=== PATIENT | female | born 1965 | race American Indian/Alaskan Native ===

== ENCOUNTER 2018-01-05 09:41 | Emergency (ER) | payer MEDICAID, OTHER ==
[~2018-01-05] VITALS: Ht 165.1 cm; Wt 90.5 kg
[~2018-01-05 09:41] MED LIST: BENZ-38 PO; CITA-311 PO; CLON-527 PO; CLON2TAB PO; CYCL-394 PO; DIAZ2TAB PO; FLUO20CA39 PO; HYDR-3968 PO; HYDR-569 PO; METH-233 PO; NAPR375T PO; PRED20TA PO; [UNRECOGNIZED DRUG - CODE] PO
[2018-01-05] MEDS ORDERED: orphenadrine citrate 60mg/2ml inj. IM ONE (10:30)
[2018-01-05] MEDS ORDERED: ketorolac trometh inj. 60 MG/2 ML VIAL IM ONE (10:30)
[2018-01-05] MEDS ORDERED: ketorolac trometh. 30mg/ml inj. IM ONE (10:30)
[2018-01-05] MEDS ORDERED: CYCL-1 PO (10:31)
[2018-01-05 10:51] VITALS: BP 135/89
== END 2018-01-05 10:52 | disposition home or self-care (01) ==
LOC: ER 09:42
DX: M54.30 Sciatica, unspecified side (principal); M21.371 Foot drop, right foot; G89.29 Other chronic pain; J45.909 Unspecified asthma, uncomplicated; F41.9 Anxiety disorder, unspecified; F20.9 Schizophrenia, unspecified; Z90.710 Acquired absence of both cervix and uterus; Z59.0 Homelessness; Z85.3 Personal history of malignant neoplasm of breast; Z79.899 Other long term (current) drug therapy
CPT/HCPCS: 96372; 99284; J1885; J2360

== ENCOUNTER 2018-02-04 10:25 | Emergency (ER) | payer MEDICAID ==
[~2018-02-04] VITALS: Ht 160 cm; Wt 86.0 kg
[~2018-02-04 10:25] MED LIST changes: +CYCL-1 PO
[2018-02-04 12:12] LABS: URINE AMPHETAMINE SCREEN NEGATIVE (Neg); URINE BARBITUATE SCREEN NEGATIVE (Neg); URINE BENZODIAZEPINES SCREEN NEGATIVE (Neg); URINE CANNABINOID SCREEN NEGATIVE (Neg); URINE COCAINE SCREEN NEGATIVE (Neg); URINE METHADONE SCREEN NEGATIVE (Neg); URINE OPIATE SCREEN NEGATIVE (Neg); URINE PHENCYCLIDINE SCREEN NEGATIVE (Neg)
[2018-02-04] MEDS ORDERED: LORazepam 0.5 MG tablet PO PRN (12:30)
[2018-02-04 13:45] VITALS: BP 182/114
== END 2018-02-04 13:47 | disposition home or self-care (01) ==
LOC: ER 10:26
DX: S01.532A Puncture wound without foreign body of oral cavity, initial encounter (principal); J45.909 Unspecified asthma, uncomplicated; G89.29 Other chronic pain; M54.9 Dorsalgia, unspecified; Z90.710 Acquired absence of both cervix and uterus; Z59.0 Homelessness; X58.XXXA Exposure to other specified factors, initial encounter; Y93.89 Activity, other specified; Y92.89 Other specified places as the place of occurrence of the external cause; Y99.8 Other external cause status
CPT/HCPCS: 80305; 99283

== ENCOUNTER 2019-07-07 15:19 | Emergency (ER) | payer MEDICAID ==
[~2019-07-07 15:19] MED LIST changes: +HYDR-4383 PO; -HYDR-569 PO
== END 2019-07-07 16:06 | disposition left against medical advice (07) ==
LOC: ER 15:20
DX: L29.9 Pruritus, unspecified (principal); Z53.21 Procedure and treatment not carried out due to patient leaving prior to being seen by health care provider

== ENCOUNTER 2022-06-14 14:14 | Emergency (ER) | payer MEDICAID ==
[~2022-06-14] VITALS: Ht 167.6 cm; Wt 75.0 kg
[2022-06-14 14:17] VITALS: BP 167/117
[2022-06-14] MEDS ORDERED: ketorolac trometh inj. 60 MG/2 ML VIAL IM ONE (15:45)
[2022-06-14] MEDS ORDERED: IBUP-1986 PO (15:46)
== END 2022-06-14 16:10 | disposition home or self-care (01) ==
LOC: ER 14:15
DX: M79.645 Pain in left finger(s) (principal); J45.909 Unspecified asthma, uncomplicated; G89.29 Other chronic pain; F41.9 Anxiety disorder, unspecified; F32.9 Major depressive disorder, single episode, unspecified; F20.9 Schizophrenia, unspecified; Z72.89 Other problems related to lifestyle; Z98.890 Other specified postprocedural states; Z90.710 Acquired absence of both cervix and uterus; Z59.00 Homelessness unspecified; Z60.2 Problems related to living alone; Z79.899 Other long term (current) drug therapy; W23.0XXA Caught, crushed, jammed, or pinched between moving objects, initial encounter; Y93.89 Activity, other specified; Y92.89 Other specified places as the place of occurrence of the external cause; Y99.8 Other external cause status
CPT/HCPCS: 73140; 96372; 99283; J1885; A6449

== ENCOUNTER 2023-10-02 12:18 | Emergency (ER) | payer MEDICAID ==
[~2023-10-02] VITALS: Ht 162.6 cm; Wt 62.0 kg
[~2023-10-02 12:18] MED LIST changes: +CLON-852 PO; -CLON2TAB PO; +IBUP-1986 PO
[2023-10-02 13:21] LABS: BASOPHILS % (AUTO) 0.2 % (0-1); EOSINOPHILS # (AUTO) 0.1 X10'3 (0-0.9); HEMATOCRIT 34.2 % (35.0-45.0); HEMOGLOBIN 11.6 g/dl (12.0-16.0); LYMPHOCYTES # (AUTO) 1.5 X10'3 (1.1-4.8); MEAN CORPUSCULAR HEMOGLOBIN 30.8 PG (27.0-31.0); MEAN CORPUSCULAR HGB CONC 33.9 g/dL (33.0-36.5); MEAN CORPUSCULAR VOLUME 90.9 FL (78-98); MEAN PLATELET VOLUME 8.2 FL (7.4-10.4); MONOCYTES # (AUTO) 0.3 X10'3 (0-0.9); MONOCYTES % (AUTO) 5.4 % (2-12); NEUTROPHILS # (AUTO) 4.1 X10'3 (1.8-7.7); NEUTROPHILS % (AUTO) 67.4 % (42-75); PLATELET COUNT 156 X10'3 (140-440); RED BLOOD COUNT 3.76 X10'6 (4.20-5.60); RED CELL DISTRIBUTION WIDTH 14.5 % (11.5-14.5); WHITE BLOOD COUNT 6.1 X10'3 (4.5-11.0)
[2023-10-02 13:35] LABS: ALANINE AMINOTRANSFERASE 27 U/L (12-78); ALBUMIN/GLOBULIN RATIO 0.8 (1.1-1.5); ALKALINE PHOSPHATASE 102 IU/L (46-116); ANION GAP 6 (8-16); ASPARTATE AMINO TRANSFERASE 27 U/L (10-37); BILIRUBIN,TOTAL 0.3 MG/DL (0.1-1.0); BLOOD UREA NITROGEN 18 MG/DL (7-18); BUN/CREATININE RATIO 22.8 (10.0-20.0); CALCIUM 7.5 MG/DL (8.5-10.1); CHLORIDE 111 MMOL/L (99-107); CREATININE 0.79 MG/DL (0.40-0.90); ETHANOL 264 MG/DL (<10); GLUCOSE 105 MG/DL (70-104); POTASSIUM 3.2 MMOL/L (3.5-5.1); SODIUM 145 MMOL/L (135-145); TOTAL CARBON DIOXIDE 27.9 MMOL/L (24-32); TOTAL PROTEIN 6.7 G/DL (6.4-8.2); eCRCL 66 ML/MIN; eGFR 74 ML/MIN
[2023-10-02 14:38] LABS: BILIRUBIN,URINE NEGATIVE (Neg); CLARITY,URINE CLEAR (Clear); COLOR,URINE YELLOW (Yellow); GLUCOSE, URINE NEGATIVE (Neg); KETONES,URINE NEGATIVE (Neg); LEUKOCYTE ESTERASE ,URINE MODERATE (Neg); NITRITES, URINE POSITIVE (Neg); OCCULT BLOOD,URINE TRACE-INTACT (Neg); PROTEIN,URINE TRACE mg/dl (Neg)
[2023-10-02 14:45] LABS: UA COLLECTION TYPE CLN CATCH MIDSTREAM
[2023-10-02 14:46] LABS: BACTERIA,URINE 3+ /HPF (Neg); MUCUS STRANDS FEW /LPF (Neg); SQUAMOUS EPITHELIAL CELL,UR FEW /LPF (FEW); WBC,URINE TNTC /HPF (0-4)
[2023-10-02 14:48] LABS: WBC CLUMPS,URINE MODERATE /HPF (NEGATIVE)
[2023-10-02] MEDS: normal saline 1000ML IV soln IVB ONE (16:15)
[2023-10-02] MEDS: LORazepam 1 MG tablet PO ONE (16:35)
[2023-10-02] MEDS: ondansetron/PF 4mg/2ml inj IV ONE (16:35)
[2023-10-02] MEDS: acetaminophen 325mg tablet PO ONE (19:24)
[2023-10-03] MEDS ORDERED: NITR100C6 PO (03:24)
[2023-10-03] MEDS: POTASSIUM BICARB 20meq eff tab 20 MEQ TABLET.EFF PO SCH (03:51)
[2023-10-03 03:57] VITALS: BP 184/120; PULSE 76; RESP 18; TEMP 98.5; O2SAT 95
== END 2023-10-03 04:07 | disposition home or self-care (01) ==
LOC: ER 12:19
DX: F10.129 Alcohol abuse with intoxication, unspecified (principal); N39.0 Urinary tract infection, site not specified; J45.909 Unspecified asthma, uncomplicated; Z79.1 Long term (current) use of non-steroidal anti-inflammatories (NSAID); Z79.899 Other long term (current) drug therapy; Z98.890 Other specified postprocedural states; Z90.710 Acquired absence of both cervix and uterus; Y90.9 Presence of alcohol in blood, level not specified
CPT/HCPCS: 36415; 80053; 80320; 81001; 85025; 87088; 93005; 96361; 96374; 99285; J2405; J7030; 87186; C1758

== ENCOUNTER 2024-03-01 20:22 | Inpatient (IN) | payer MEDICAID ==
[~2024-03-01] VITALS: Ht 162.6 cm; Wt 65.0 kg
[~2024-03-01 20:22] MED LIST changes: +NITR100C6 PO
[2024-03-01] MEDS: normal saline 1000ML IV soln IVB ONE (20:58)
[2024-03-01 21:08] LABS: BASOPHILS % (AUTO) 0.2 % (0-1); EOSINOPHILS # (AUTO) 0.1 X10'3 (0-0.9); EOSINOPHILS % (AUTO) 0.3 % (0-6); HEMATOCRIT 31.8 % (35.0-45.0); HEMOGLOBIN 10.6 g/dl (12.0-16.0); MEAN CORPUSCULAR HEMOGLOBIN 31.1 PG (27.0-31.0); MEAN CORPUSCULAR HGB CONC 33.5 g/dL (33.0-36.5); MEAN CORPUSCULAR VOLUME 93.1 FL (78-98); MONOCYTES # (AUTO) 1.4 X10'3 (0-0.9); MONOCYTES % (AUTO) 8.3 % (2-12); NEUTROPHILS # (AUTO) 14.2 X10'3 (1.8-7.7); NEUTROPHILS % (AUTO) 85.2 % (42-75); PLATELET COUNT 173 X10'3 (140-440); RED BLOOD COUNT 3.42 X10'6 (4.20-5.60); RED CELL DISTRIBUTION WIDTH 13.6 % (11.5-14.5); WHITE BLOOD COUNT 16.7 X10'3 (4.5-11.0)
[2024-03-01 21:16] LABS: ALBUMIN 2.7 G/DL (3.4-5.0); ANION GAP 9 (8-16); BLOOD UREA NITROGEN 22 MG/DL (7-18); BUN/CREATININE RATIO 21.6 (10.0-20.0); CALCIUM 8.2 MG/DL (8.5-10.1); CHLORIDE 96 MMOL/L (99-107); CREATININE 1.02 MG/DL (0.40-0.90); GLUCOSE 136 MG/DL (70-104); POTASSIUM 3.3 MMOL/L (3.5-5.1); SODIUM 132 MMOL/L (135-145); TOTAL CARBON DIOXIDE 26.8 MMOL/L (24-32); eCRCL 51 ML/MIN; eGFR 55 ML/MIN
[2024-03-01] MEDS: ondansetron/PF 4mg/2ml inj IV ONE (21:16)
[2024-03-01] MEDS: morphine 4 MG/ML inj SYRINge IV ONE (21:16)
[2024-03-01] MEDS ORDERED: iohexol 300mg/ml 100ml inj. ONE (21:16)
[2024-03-01] MEDS: CefTRIAXone 2gm/D5W 50ml BAG 50 ML IV ONE (21:20)
[2024-03-01] MEDS: vancomycin/NS 1 GM ADD-VANTAGE 250 ML IV ONE (22:11)
[2024-03-01] MEDS: midazolam 100mg in NS 100ml 100 ML IV PRN (23:47)
[2024-03-01] MEDS: fentaNYL/PF 50MCG/1 ML 2ML syringe IV PRN (23:47)
[2024-03-02] VITALS (17 sets, daily range): BP systolic 124–126; BP diastolic 68–72; PULSE 66–93; RESP 14–18; TEMP 98.6–102.2; O2SAT 88–98
[2024-03-02] MEDS ORDERED: magnesium Cl slow-release 64mg tablet PO PRN (00:20)
[2024-03-02] MEDS ORDERED: magnesium sulf-water 4G/100mL 100 ML IV PRN (00:20)
[2024-03-02] MEDS ORDERED: mag hydrox/Alum hydrox/simeth 30ml oral suspension PO PRN (00:20)
[2024-03-02] MEDS ORDERED: ondansetron/PF 4mg/2ml inj IV PRN (00:20)
[2024-03-02] MEDS ORDERED: magnesium hydroxide 30ml (MOM) UD suspension PO PRN (00:20)
[2024-03-02] MEDS ORDERED: ipratropium/albuterol 3ml nebule NEB PRN (00:20)
[2024-03-02] MEDS ORDERED: potassium Cl 20 mEq SR tablet PO PRN (00:20)
[2024-03-02] MEDS ORDERED: potassium Cl 40MEQ/1/2NS 520ml 520 ML IV PRN (00:20)
[2024-03-02] MEDS ORDERED: magnesium sulf-water 2g/50mL 50 ML IV PRN (00:20)
[2024-03-02] MEDS: normal saline 1000ml 1,000 ML IV ONE ×2 (00:52→00:54)
[2024-03-02] MEDS: normal saline 1000ml 1,000 ML IV SCH (00:52)
[2024-03-02] MEDS: ipratropium/albuterol 3ml nebule NEB SCH (04:36)
[2024-03-02 05:33] LABS: BILIRUBIN,URINE NEGATIVE (Neg); CLARITY,URINE CLEAR (Clear); COLOR,URINE YELLOW (Yellow); GLUCOSE, URINE NEGATIVE (Neg); KETONES,URINE NEGATIVE (Neg); LEUKOCYTE ESTERASE ,URINE NEGATIVE (Neg); NITRITES, URINE NEGATIVE (Neg); OCCULT BLOOD,URINE NEGATIVE (Neg); PROTEIN,URINE TRACE mg/dl (Neg)
[2024-03-02 05:43] LABS: UA COLLECTION TYPE CLN CATCH MIDSTREAM
[2024-03-02 05:46] LABS: WBC,URINE 0-4 /HPF (0-4)
[2024-03-02 05:47] LABS: RBC,URINE NONE SEEN /HPF (0-2)
[2024-03-02 05:48] LABS: BACTERIA,URINE 1+ /HPF (Neg); MUCUS STRANDS FEW /LPF (Neg); SQUAMOUS EPITHELIAL CELL,UR MANY /LPF (FEW)
[2024-03-02 05:52] LABS: URINE AMPHETAMINE SCREEN POSITIVE (Neg); URINE BARBITUATE SCREEN NEGATIVE (Neg); URINE BENZODIAZEPINES SCREEN NEGATIVE (Neg); URINE CANNABINOID SCREEN NEGATIVE (Neg); URINE COCAINE SCREEN NEGATIVE (Neg); URINE METHADONE SCREEN NEGATIVE (Neg); URINE OPIATE SCREEN POSITIVE (Neg); URINE PHENCYCLIDINE SCREEN NEGATIVE (Neg)
[2024-03-02] MEDS: docusate sod 100mg capsule PO SCH (07:45)
[2024-03-02] MEDS: CefTRIAXone/D5W-Rocephin 1gm 50 ML IV SCH (07:47)
[2024-03-02] MEDS: acetaminophen 325mg tablet PO PRN (07:48)
[2024-03-02] MEDS: heparin, porcine 5000 units/ml vial SQ SCH (07:50)
[2024-03-02 08:26] LABS: ALANINE AMINOTRANSFERASE 24 U/L (12-78); ALKALINE PHOSPHATASE 125 IU/L (46-116); ASPARTATE AMINO TRANSFERASE 43 U/L (10-37); MAGNESIUM 1.8 MG/DL (1.5-2.4)
[2024-03-02] MEDS: K and/or MAG REPLACEMENT MC SCH (08:35)
[2024-03-02] MEDS: potassium Cl 20 mEq SR tablet PO PRN (08:40)
[2024-03-02 09:05] LABS: BASOPHILS % (AUTO) 0.2 % (0-1); EOSINOPHILS # (AUTO) 0.1 X10'3 (0-0.9); EOSINOPHILS % (AUTO) 0.4 % (0-6); HEMATOCRIT 28.1 % (35.0-45.0); HEMOGLOBIN 9.2 g/dl (12.0-16.0); MEAN CORPUSCULAR HGB CONC 32.7 g/dL (33.0-36.5); MEAN CORPUSCULAR VOLUME 94.6 FL (78-98); MEAN PLATELET VOLUME 8.8 FL (7.4-10.4); MONOCYTES # (AUTO) 1.2 X10'3 (0-0.9); MONOCYTES % (AUTO) 8.1 % (2-12); NEUTROPHILS # (AUTO) 12.6 X10'3 (1.8-7.7); NEUTROPHILS % (AUTO) 84.3 % (42-75); PLATELET COUNT 155 X10'3 (140-440); RED BLOOD COUNT 2.97 X10'6 (4.20-5.60); RED CELL DISTRIBUTION WIDTH 13.8 % (11.5-14.5)
[2024-03-02 09:10] LABS: ALBUMIN 2.1 G/DL (3.4-5.0); ANION GAP 10 (8-16); BLOOD UREA NITROGEN 12 MG/DL (7-18); BUN/CREATININE RATIO 15.6 (10.0-20.0); CALCIUM 7.4 MG/DL (8.5-10.1); CHLORIDE 103 MMOL/L (99-107); CREATININE 0.77 MG/DL (0.40-0.90); GLUCOSE 103 MG/DL (70-104); POTASSIUM 3.3 MMOL/L (3.5-5.1); SODIUM 135 MMOL/L (135-145); TOTAL CARBON DIOXIDE 22.5 MMOL/L (24-32); eCRCL 68 ML/MIN; eGFR 77 ML/MIN
[2024-03-02] MEDS: vancomycin/NS 1 GM ADD-VANTAGE 250 ML IV SCH (10:05)
[2024-03-02] MEDS: LORazepam 2 mg/ml vial IV PRN (10:23)
[2024-03-02] MEDS ORDERED: UNABLE TO OBTAIN (15:49)
[2024-03-02] MEDS: thiamine 100mg tablet PO SCH (21:31)
[2024-03-03] VITALS (17 sets, daily range): BP systolic 121–150; BP diastolic 68–91; PULSE 76–96; RESP 14–19; TEMP 98.2–100.6; O2SAT 89–94
[2024-03-03 04:37] LABS: BASOPHILS % (AUTO) 0.1 % (0-1); EOSINOPHILS # (AUTO) 0.1 X10'3 (0-0.9); EOSINOPHILS % (AUTO) 1.1 % (0-6); HEMATOCRIT 29.4 % (35.0-45.0); HEMOGLOBIN 9.7 g/dl (12.0-16.0); LYMPHOCYTES # (AUTO) 0.9 X10'3 (1.1-4.8); LYMPHOCYTES % (AUTO) 7.3 % (21-51); MEAN CORPUSCULAR HEMOGLOBIN 31.3 PG (27.0-31.0); MEAN CORPUSCULAR HGB CONC 32.9 g/dL (33.0-36.5); MEAN PLATELET VOLUME 8.2 FL (7.4-10.4); MONOCYTES % (AUTO) 8.2 % (2-12); NEUTROPHILS # (AUTO) 10.3 X10'3 (1.8-7.7); NEUTROPHILS % (AUTO) 83.3 % (42-75); PLATELET COUNT 159 X10'3 (140-440); RED BLOOD COUNT 3.09 X10'6 (4.20-5.60); RED CELL DISTRIBUTION WIDTH 14.4 % (11.5-14.5); WHITE BLOOD COUNT 12.3 X10'3 (4.5-11.0)
[2024-03-03 04:44] LABS: APTT 23 SECONDS (22-32); PROTHROMBIN TIME 10.2 SECONDS (9.0-12.0)
[2024-03-03 04:45] LABS: ALANINE AMINOTRANSFERASE 25 U/L (12-78); ALBUMIN 2.2 G/DL (3.4-5.0); ALBUMIN/GLOBULIN RATIO 0.5 (1.1-1.5); ALKALINE PHOSPHATASE 108 IU/L (46-116); ANION GAP 7 (8-16); ASPARTATE AMINO TRANSFERASE 35 U/L (10-37); BILIRUBIN,TOTAL 0.5 MG/DL (0.1-1.0); BLOOD UREA NITROGEN 8 MG/DL (7-18); BUN/CREATININE RATIO 9.8 (10.0-20.0); CALCIUM 8.3 MG/DL (8.5-10.1); CHLORIDE 105 MMOL/L (99-107); CREATININE 0.82 MG/DL (0.40-0.90); GLUCOSE 92 MG/DL (70-104); LIPASE 18 U/L (16-77); MAGNESIUM 1.9 MG/DL (1.5-2.4); POTASSIUM 3.8 MMOL/L (3.5-5.1); SODIUM 137 MMOL/L (135-145); TOTAL CARBON DIOXIDE 24.6 MMOL/L (24-32); TOTAL PROTEIN 6.3 G/DL (6.4-8.2); eCRCL 64 ML/MIN; eGFR 71 ML/MIN
[2024-03-03] MEDS: multivitamins, therapeutics tablet PO SCH (07:50)
[2024-03-03] MEDS: VANCOMYCIN LEVEL IV ONE (09:30)
[2024-03-03] MEDS ORDERED: HYDROcodone/acetaminophen 5mg/325mg tablet 1/2 TAB PO PRN (13:30)
[2024-03-03] MEDS ORDERED: LORazepam 2 mg/ml vial IV PRN (13:30)
[2024-03-03] MEDS: HYDROcodone/acetaminophen 10/325mg tab PO PRN (19:07)
[2024-03-03] MEDS: LORazepam 1 MG tablet PO PRN (20:03)
[2024-03-03] MEDS: VANCOmycin 1250MG/NS 250ml Bag 250 ML IV SCH (22:59)
[2024-03-04 05:18] LABS: BASOPHILS % (AUTO) 0.1 % (0-1); EOSINOPHILS # (AUTO) 0.2 X10'3 (0-0.9); EOSINOPHILS % (AUTO) 1.6 % (0-6); HEMATOCRIT 26.6 % (35.0-45.0); HEMOGLOBIN 8.8 g/dl (12.0-16.0); LYMPHOCYTES # (AUTO) 1.1 X10'3 (1.1-4.8); LYMPHOCYTES % (AUTO) 9.5 % (21-51); MEAN CORPUSCULAR HEMOGLOBIN 31.1 PG (27.0-31.0); MEAN CORPUSCULAR HGB CONC 33.1 g/dL (33.0-36.5); MONOCYTES # (AUTO) 1.1 X10'3 (0-0.9); MONOCYTES % (AUTO) 9.6 % (2-12); NEUTROPHILS # (AUTO) 8.9 X10'3 (1.8-7.7); NEUTROPHILS % (AUTO) 79.2 % (42-75); PLATELET COUNT 183 X10'3 (140-440); RED BLOOD COUNT 2.83 X10'6 (4.20-5.60); RED CELL DISTRIBUTION WIDTH 14.1 % (11.5-14.5); WHITE BLOOD COUNT 11.2 X10'3 (4.5-11.0)
[2024-03-04 05:24] LABS: PROTHROMBIN TIME 10.5 SECONDS (9.0-12.0)
[2024-03-04 05:32] LABS: ALANINE AMINOTRANSFERASE 20 U/L (12-78); ALBUMIN 1.8 G/DL (3.4-5.0); ALBUMIN/GLOBULIN RATIO 0.5 (1.1-1.5); ALKALINE PHOSPHATASE 90 IU/L (46-116); ANION GAP 4 (8-16); ASPARTATE AMINO TRANSFERASE 24 U/L (10-37); BILIRUBIN,TOTAL 0.5 MG/DL (0.1-1.0); BLOOD UREA NITROGEN 6 MG/DL (7-18); BUN/CREATININE RATIO 8.7 (10.0-20.0); CALCIUM 7.9 MG/DL (8.5-10.1); CHLORIDE 105 MMOL/L (99-107); CREATININE 0.69 MG/DL (0.40-0.90); GLUCOSE 90 MG/DL (70-104); LIPASE 15 U/L (16-77); MAGNESIUM 1.6 MG/DL (1.5-2.4); PHOSPHORUS 3.2 MG/DL (2.3-4.5); POTASSIUM 3.4 MMOL/L (3.5-5.1); SODIUM 135 MMOL/L (135-145); TOTAL CARBON DIOXIDE 25.8 MMOL/L (24-32); TOTAL PROTEIN 5.5 G/DL (6.4-8.2); eCRCL 76 ML/MIN; eGFR 87 ML/MIN
[2024-03-04 06:08] VITALS: RESP 19; O2SAT 93
[2024-03-04 08:00] VITALS: RESP 16; O2SAT 92
[2024-03-04 08:37] VITALS: PULSE 81; RESP 14; O2SAT 97
[2024-03-04 08:41] VITALS: PULSE 81; RESP 16
[2024-03-04] MEDS ORDERED: LORazepam 1 MG tablet PO PRN (10:00)
[2024-03-04] MEDS ORDERED: LORazepam 2 mg/ml vial IV PRN (10:00)
[2024-03-04 11:36] VITALS: PULSE 76; RESP 16; O2SAT 93
[2024-03-04 11:43] VITALS: PULSE 79; RESP 16
[2024-03-05] MEDS ORDERED: VANCOMYCIN LEVEL IV ONE (09:30)
[2024-03-06] MEDS ORDERED: LORazepam 1 MG tablet PO PRN (10:00)
[2024-03-06] MEDS ORDERED: LORazepam 2 mg/ml vial IV PRN (10:00)
[2024-03-07] MEDS ORDERED: folic acid 1mg tablet PO SCH (08:00)
== END 2024-03-04 12:14 | disposition left against medical advice (07) | DRG 720 ==
LOC: ER 20:22 → ED HOLD 23:38 → SUR 3N 03-02 16:25
PROVIDERS: ADMIT Student in an Organized Health Care Education/Training Program; ATTEND Family Medicine
PROC: 05HB33Z Insertion of Infusion Device into Right Basilic Vein, Percutaneous Approach (ICD-10-PCS; principal; 2024-03-02)
PROC: B54MZZA Ultrasonography of Right Upper Extremity Veins, Guidance (ICD-10-PCS; 2024-03-02)
DX: A41.9 Sepsis, unspecified organism (principal); F10.231 Alcohol dependence with withdrawal delirium; N17.9 Acute kidney failure, unspecified; E87.1 Hypo-osmolality and hyponatremia; E88.09 Other disorders of plasma-protein metabolism, not elsewhere classified; L98.419 Non-pressure chronic ulcer of buttock with unspecified severity; E87.6 Hypokalemia; F20.9 Schizophrenia, unspecified; J44.89 Other specified chronic obstructive pulmonary disease; F17.210 Nicotine dependence, cigarettes, uncomplicated; L02.31 Cutaneous abscess of buttock; Z53.29 Procedure and treatment not carried out because of patient's decision for other reasons; G89.29 Other chronic pain; F32.A Depression, unspecified; F41.0 Panic disorder [episodic paroxysmal anxiety]; F15.10 Other stimulant abuse, uncomplicated; Y90.9 Presence of alcohol in blood, level not specified; L03.317 Cellulitis of buttock; E86.0 Dehydration; Z59.00 Homelessness unspecified; Z85.3 Personal history of malignant neoplasm of breast; Z90.710 Acquired absence of both cervix and uterus
CPT/HCPCS: 36410; 36415; 71045; 74177; 76937; 80048; 80053; 80202; 80305; 81001; 83605; 83690; 83735; 84075; 84100; 84145; 84450; 84460; 85025; 85610; 85651; 85730; 87040; 87070; 87075; 87077; 87081; 87186; 92508; 92616; 93005; 93306; 94640; 94760; 96365; 96367; 99285; A4615; A4649; A6209; A6212; A6213; A6253; A6449; C1751; G0378; J0696; J1644; J2060; J2270; J2405; J3010; J3370; J7030; Q9967

== ENCOUNTER 2024-05-11 19:38 | Emergency (ER) | payer MEDICAID ==
[~2024-05-11 19:38] MED LIST changes: -BENZ-38 PO; -CITA-311 PO; -CLON-527 PO; -CLON-852 PO; -CYCL-1 PO; -CYCL-394 PO; -DIAZ2TAB PO; -FLUO20CA39 PO; -HYDR-3968 PO; -HYDR-4383 PO; -IBUP-1986 PO; -METH-233 PO; -NAPR375T PO; -NITR100C6 PO; -PRED20TA PO; +UNABLE TO OBTAIN; -[UNRECOGNIZED DRUG - CODE] PO
[2024-05-11 23:23] LABS: BASOPHILS % (AUTO) 0.3 % (0-1); EOSINOPHILS # (AUTO) 0.2 X10'3 (0-0.9); EOSINOPHILS % (AUTO) 3.9 % (0-6); HEMATOCRIT 31.5 % (35.0-45.0); HEMOGLOBIN 10.7 g/dl (12.0-16.0); LYMPHOCYTES # (AUTO) 1.5 X10'3 (1.1-4.8); LYMPHOCYTES % (AUTO) 27.8 % (21-51); MEAN CORPUSCULAR HEMOGLOBIN 30.4 PG (27.0-31.0); MEAN CORPUSCULAR HGB CONC 33.9 g/dL (33.0-36.5); MEAN CORPUSCULAR VOLUME 89.6 FL (78-98); MEAN PLATELET VOLUME 7.4 FL (7.4-10.4); MONOCYTES # (AUTO) 0.4 X10'3 (0-0.9); MONOCYTES % (AUTO) 8.1 % (2-12); NEUTROPHILS # (AUTO) 3.3 X10'3 (1.8-7.7); NEUTROPHILS % (AUTO) 59.9 % (42-75); PLATELET COUNT 302 X10'3 (140-440); RED BLOOD COUNT 3.52 X10'6 (4.20-5.60); RED CELL DISTRIBUTION WIDTH 14.7 % (11.5-14.5); WHITE BLOOD COUNT 5.6 X10'3 (4.5-11.0)
[2024-05-11 23:28] LABS: APTT 25 SECONDS (22-32); INR 0.9 INR; PROTHROMBIN TIME 9.9 SECONDS (9.0-12.0)
[2024-05-11 23:30] LABS: ALANINE AMINOTRANSFERASE 24 U/L (12-78); ALBUMIN 2.8 G/DL (3.4-5.0); ALBUMIN/GLOBULIN RATIO 0.6 (1.1-1.5); ALKALINE PHOSPHATASE 102 IU/L (46-116); ANION GAP 7 (8-16); ASPARTATE AMINO TRANSFERASE 42 U/L (10-37); BILIRUBIN,TOTAL 0.3 MG/DL (0.1-1.0); BLOOD UREA NITROGEN 23 MG/DL (7-18); BUN/CREATININE RATIO 31.9 (10.0-20.0); CALCIUM 8.1 MG/DL (8.5-10.1); CHLORIDE 106 MMOL/L (99-107); CREATININE 0.72 MG/DL (0.40-0.90); GLUCOSE 103 MG/DL (70-104); POTASSIUM 3.8 MMOL/L (3.5-5.1); SODIUM 139 MMOL/L (135-145); TOTAL CARBON DIOXIDE 26.4 MMOL/L (24-32); TOTAL PROTEIN 7.5 G/DL (6.4-8.2); eGFR 83 ML/MIN
[2024-05-12 00:45] LABS: BILIRUBIN,URINE NEGATIVE (Neg); CLARITY,URINE CLEAR (Clear); COLOR,URINE YELLOW (Yellow); GLUCOSE, URINE NEGATIVE (Neg); KETONES,URINE NEGATIVE (Neg); LEUKOCYTE ESTERASE ,URINE NEGATIVE (Neg); NITRITES, URINE NEGATIVE (Neg); OCCULT BLOOD,URINE NEGATIVE (Neg); PROTEIN,URINE NEGATIVE (Neg); UROBILINOGEN,URINE 0.2 E.U/dL (0.2-1.0)
[2024-05-12 01:04] LABS: UA COLLECTION TYPE CLN CATCH MIDSTREAM
[2024-05-12 03:12] VITALS: TEMP 97.6
[2024-05-12 03:13] VITALS: BP 107/63; PULSE 78; RESP 16; O2SAT 98
== END 2024-05-12 03:19 | disposition home or self-care (01) ==
LOC: ER 19:39
DX: K59.00 Constipation, unspecified (principal); K92.2 Gastrointestinal hemorrhage, unspecified; K21.9 Gastro-esophageal reflux disease without esophagitis; J45.909 Unspecified asthma, uncomplicated; F20.9 Schizophrenia, unspecified; G89.29 Other chronic pain; M54.9 Dorsalgia, unspecified; F41.9 Anxiety disorder, unspecified; F32.A Depression, unspecified; F41.0 Panic disorder [episodic paroxysmal anxiety]; F10.90 Alcohol use, unspecified, uncomplicated; Z90.710 Acquired absence of both cervix and uterus; Z85.3 Personal history of malignant neoplasm of breast; Z59.00 Homelessness unspecified
CPT/HCPCS: 36415; 80053; 81003; 85025; 85610; 85730; 86885; 86900; 86901; 99283

== ENCOUNTER 2024-05-27 03:27 | Emergency (ER) | payer MEDICAID ==
[~2024-05-27] VITALS: Ht 162.6 cm; Wt 64.8 kg
[2024-05-27] MEDS ORDERED: DICL50TA8 PO (05:19)
[2024-05-27] MEDS ORDERED: CYCL-1 PO (05:19)
[2024-05-27] MEDS: ketorolac trometh 30MG/ML vial 30 MG/ML VIAL IV ONE (05:27)
[2024-05-27] MEDS: cyclobenzaprine 10mg tablet PO ONE (05:27)
[2024-05-27 05:54] VITALS: BP 141/92; PULSE 62; RESP 15; TEMP 99.4; O2SAT 100
== END 2024-05-27 06:13 | disposition home or self-care (01) ==
LOC: ER 03:27
DX: S16.1XXA Strain of muscle, fascia and tendon at neck level, initial encounter (principal); F20.9 Schizophrenia, unspecified; J45.909 Unspecified asthma, uncomplicated; F10.90 Alcohol use, unspecified, uncomplicated; F32.A Depression, unspecified; F41.9 Anxiety disorder, unspecified; Z90.710 Acquired absence of both cervix and uterus; Z98.890 Other specified postprocedural states; X58.XXXA Exposure to other specified factors, initial encounter; Y93.89 Activity, other specified; Y92.89 Other specified places as the place of occurrence of the external cause; Y99.8 Other external cause status; Y90.9 Presence of alcohol in blood, level not specified
CPT/HCPCS: 96374; 99284; J1885

== ENCOUNTER 2025-02-01 00:06 | Emergency (ER) | payer MEDICAID ==
[~2025-02-01] VITALS: Ht 162.6 cm; Wt 66.4 kg
[~2025-02-01 00:06] MED LIST changes: +CYCL-1 PO; +DICL50TA8 PO
[2025-02-01 00:25] VITALS: TEMP 97.8
[2025-02-01] MEDS ORDERED: POLY17PO10 PO (00:55)
[2025-02-01] MEDS ORDERED: BISA-78 PO (00:55)
--- NOTE | 2025-02-01 00:56 | Physician Documentation ---
History of Present Illness ~ Chief Complaint: Abdominal Pain Stated Complaint: ABD PAIN Time Seen by MD: 00:50 Primary Medical Doctor: DR. HOLLY HPI Patient presents to the emergency room brought in by EMS for chief complaint of abdominal pain. Upon arrival to the emergency room I inquired what brought patient to the emergency room and she stated that she had a lot of depression on but that is not why she was here that has because she had some abdominal pain. She feels it may be due to constipation as she has not gone in two days. No fevers. Patient fallen asleep while taking H and P. No current pain Medication Reconciliation Allergies: Coded Allergies: No Known Allergies (Unverified , 05/11/24) Scheduled Cyclobenzaprine* (Cyclobenzaprine*), 1 TAB PO Q8H Diclofenac Sodium (Diclofenac Sodium), 1 TAB PO Q12H Miscellaneous Medications Unable to Obtain Medications (Unable to Obtain Medications), (Reported) Past Medical History Past Medical History: Asthma, Chronic Pain, Chronic Back Pain, Breast Cancer, Anxiety, Depression, Panic Disorder, Schizophrenia Past Surgical History: , hysterectomy Alcohol Use: Alcoholic Drug Use: none Lives with: Alone Lives In: Homeless Occupation: disabled Review of Systems ROS All review of systems negative except as per HPI Physical Exam Vital Signs: Temperature: 97.8, Source: Oral, Heart Rate: 87, Respiratory Rate: 17, BP: 157/103, Pulse Oximetry: 100, Weight: 66.400 Physical Exam General: Patient is sleeping, easily arousable in no acute distress Head: Normocephalic and atraumatic. Eyes: Conjunctival normal. EOMI. PERRL. ENT: Mucous membranes moist. Neck: Supple, trachea is midline. Chest: Clear to auscultation bilaterally without rales, rhonchi, or wheezes. There is no accessory muscle use or retractions. Cardiac: RRR without murmurs, gallops, or rubs. Abd: Soft, nondistended, nontender, with normoactive bowel sounds. No guarding, rebound, or rigidity. Progress Results/Orders Results/Orders Vital Signs 02/01/25 02/01/25 00:13 00:25 Temp 97.8 97.8 Pulse 83 87 Resp 16 17 B/P (MAP) 157/103 (121) Pulse Ox 100 100 Medical Decision Making Findings Patient presents to the emergency room for evaluation for abdominal pain. Abdominal pain has resolved. Given patient's stable vitals reassuring physical exam resolution of symptoms I do not feel emergent labs or imaging is necessary. We will empirically treat for constipation. Departure Disposition: HOME / SELF CARE / HOMELESS Impression: Primary Impression: Constipation Condition: Stable Discharge Instructions: Abdominal Pain (Nonspecific) Referrals: NO PRIMARY CARE PROVIDER (PCP) Prescriptions Polyethylene Glycol 3350* (Miralax*) 1 Packet Packet 1 PKT PO DAILY for constipation, #30 PKT dissolve in water Prov: VITALIY MIRELES MD 02/01/25 Bisacodyl (Dulcolax) 5 Mg Tablet.dr 4 TAB PO ONCE for constipation for 1 Day, #4 TAB 0 Refills Prov: VITALIY MIRELES MD 02/01/25 Education Educated: Patient Educated regarding: diagnosis, treatment, need for follow up Signature Scribe Signature: No scribe Attestation: The note accurately reflects work and decisions made by me.Vitaliy Mireles MD 02/01/25 00:56 VITALIY MIRELES MD Feb 01, 2025 00:56
[2025-02-01 00:59] VITALS: BP 159/67; PULSE 74; RESP 16; O2SAT 98
[2025-02-01] MEDS: bisacodyl 5mg tablet.DR PO ONE (01:08)
== END 2025-02-01 01:13 | disposition home or self-care (01) ==
LOC: ER 00:07
DX: K59.00 Constipation, unspecified (principal); J45.909 Unspecified asthma, uncomplicated; F20.9 Schizophrenia, unspecified; G89.29 Other chronic pain; F41.9 Anxiety disorder, unspecified; F32.A Depression, unspecified; Z85.3 Personal history of malignant neoplasm of breast; Z90.710 Acquired absence of both cervix and uterus; Z79.899 Other long term (current) drug therapy; Z60.2 Problems related to living alone; Z59.00 Homelessness unspecified
CPT/HCPCS: 99283

== ENCOUNTER 2025-03-03 20:40 | Emergency (ER) | payer MEDICAID ==
[~2025-03-03 20:40] MED LIST changes: +BISA-78 PO; +POLY17PO10 PO
== END 2025-03-03 21:45 | disposition left against medical advice (07) ==
LOC: ER 20:41
DX: M79.605 Pain in left leg (principal); Z53.21 Procedure and treatment not carried out due to patient leaving prior to being seen by health care provider
CPT/HCPCS: 99281

== ENCOUNTER 2025-04-02 16:59 | Emergency (ER) | payer MEDICAID ==
[~2025-04-02] VITALS: Ht 177.8 cm; Wt 65.2 kg
[~2025-04-02 16:59] MED LIST changes: -POLY17PO10 PO
--- NOTE | 2025-04-02 18:09 | Physician Documentation ---
History of Present Illness ~ Chief Complaint: Medical Clearance Stated Complaint: MED CLEARANCE Time Seen by MD: 17:03 Primary Medical Doctor: DR. HOLLY HPI This is a 60-year-old female with a history of methamphetamine, opioid, and alcohol abuse who presents requesting medical clearance to enter a detox and rehab program, patient reports last drink last night and normally drinks a pt of alcohol daily, patient reports last use of methamphetamine last night. Patient reports she has not used opioids in some time and has been on Suboxone treatment though has lost access to her previously prescribed Suboxone. Patient reports feeling anxious today otherwise reports no other acute symptoms or concerns including no chest pain, shortness of breath, suicidal ideation, or homicidal ideation. Tetanus within 5 years?: No Medication Reconciliation Allergies: Coded Allergies: No Known Allergies (Unverified , 05/11/24) Scheduled Bisacodyl (Dulcolax), 4 TAB PO ONCE Buprenorphine Hcl/Naloxone Hcl (Suboxone 8 Mg-2 Mg Sl Film), 1 STRIP SL TID Cyclobenzaprine* (Cyclobenzaprine*), 1 TAB PO Q8H Diclofenac Sodium (Diclofenac Sodium), 1 TAB PO Q12H Scheduled PRN Chlordiazepoxide Hcl (Librium), 25 MG PO BID PRN for for anxiety/agitation Miscellaneous Medications Unable to Obtain Medications (Unable to Obtain Medications), (Reported) Past Medical History Past Medical History: Asthma, Chronic Pain, Chronic Back Pain, Breast Cancer, Anxiety, Depression, Panic Disorder, Schizophrenia Past Surgical History: , hysterectomy Alcohol Use: Alcoholic Drug Use: none Lives with: Alone Lives In: Homeless Occupation: disabled Review of Systems ROS As stated above in the HPI, otherwise all systems are reviewed and negative. Physical Exam Vital Signs: Temperature: 98.1, Source: Oral, Heart Rate: 101, Respiratory Rat e: 16, BP: 188/113, Pulse Oximetry: 97, Weight: 65.200 Oxygen Flow Rate: 0 Physical Exam VITALS: Reviewed and as above. GENERAL: Alert, nontoxic appearing, no apparent distress. HEENT: PERRLA, EOMI RESPIRATORY: No increased work of breathing, no respiratory distress, speaking in full clear sentences, clear lung sounds in all [place] CV: Regular rate and rhythm no murmur BACK: No CVA tenderness GI: Soft, nontender, no rebound, no guarding, bowel sounds present NEURO: GCS 15, no tremor PSYCH: Anxious appearing, no statements of HI or SI Progress Results/Orders Results/Orders Completed Orders - DELORES BANG [facility] Chlordiazepoxide Capsule (Librium Capsul (04/02/25 18:20) Buprenorphine/Naloxone Sl Film (Suboxone (04/02/25 18:20) Medications Received in ER Medications (Trade) Dose Ordered Sig/Ronan Route PRN Reason Start Time Stop Time Status Last Admin Dose Admin (Librium capsule) 75 mg ONCE ONCE PO 04/02/25 18:20 04/02/25 18:23 DC 04/02/25 18:34 75 MG (Suboxone 8MG-2MG SL film) 1 film ONCE ONCE SL 04/02/25 18:20 04/02/25 18:21 DC 04/02/25 18:34 1 FILM Vital Signs 04/02/25 04/02/25 04/02/25 17:00 18:34 19:14 Temp 98.1 98.6 Pulse 101 99 Resp 16 18 18 B/P (MAP) 188/113 178/101 Pulse Ox 97 99 O2 Flow Rate 0 Medical Decision Making Additional information obtaine: N/A Findings This 60-year-old female with a history of methamphetamine, opioid, and alcohol abuse presented to the emergency department requesting medical clearance to enter a detox and rehab program, patient demonstrated some signs of early alcohol withdrawal with hypertension, tachycardia and anxiety given report of heavy alcohol use and last drink one day prior, otherwise patient's physical exam was benign. Patient was medicated for early withdrawal symptoms with Librium. As patient is otherwise well and hemodynamically stable with no other acute symptoms or concerns reported she is medically cleared to enter her rehab and detox program, patient discharged with a Librium taper for alcohol withdrawal symptoms and a short course of Suboxone due to past opioid dependence, patient is to follow up with primary care provider or [facility] for continued Suboxone prescription and outpatient follow up. Patient provided careful return to care precautions, home care instructions, and follow up ins tructions which he verbalized understanding of. Differential Dx:Considerations: Include: Intoxication-Alcohol, Intoxication- Other drug, Personality disorder, Substance abuse disorder, Acute delirium, Alcohol withdrawl syndrom, Other (Anxiety, SI, HI) Departure Time of Disposition: 18:06 Disposition: 01 HOME / SELF CARE / HOMELESS Impression: Primary Impression: Alcohol withdrawal Qualified Codes: F10.930 - Alcohol use, unspecified with withdrawal, uncomplicated Additional Impressions: History of opioid abuse History of methamphetamine abuse General medical exam Condition: Improved Discharge Instructions: Alcohol Withdrawal Syndrome, [id number] Additional Instructions: Please take the prescribed Librium following the directions on the bottle for alcohol withdrawal symptoms, please enter your treatment program as soon as possible. Take the Suboxone as prescribed. Follow up with a primary care provider or the [facility] in the next few days. Please return to the emergency department for any new or worsening concerning symptoms. You are medically cleared to enter your substance abuse treatment program. Referrals: NO PRIMARY CARE PROVIDER (PCP) Prescriptions Buprenorphine Hcl/Naloxone Hcl (Suboxone 8 Mg-2 Mg Sl Film) 8 Mg-2 Mg Film 1 STRIP SL TID for 7 Days, #21 STRIP Prov: DELORES BANGP 04/02/25 Chlordiazepoxide Hcl (Librium) 25 Mg Capsule 25 MG PO BID PRN for for anxiety/agitation MDD 150 mg for 14 Days, #32 CAP Use 2 tablets by mouth 3 times a day for 2 days, then 2 tablets twice a day for 2 days, then 1 tablet 3 times a day for 2 days, then 1 tablet twice a day for 2 days, then 1 tablet a day for 2 days Prov: DELORES BANGP 04/02/25 Education Educated: Patient Educated regarding: diagnosis, treatment, prognosis, need for follow up Signature Scribe Signature: No scribe Attestation: The note accurately reflects work and decisions made by me.ANAYELI Barry 04/03/25 01:09 DELORES BANG Apr 02, 2025 18:09
[2025-04-02] MEDS ORDERED: BUPR1FIL3 SL (18:18)
[2025-04-02] MEDS ORDERED: CHLO25CA10 PO (18:18)
[2025-04-02] MEDS: buprenorphine/naloxone 8MG-2MG SUBlingual film SL ONE (18:34)
[2025-04-02 19:14] VITALS: BP 178/101; PULSE 99; RESP 18; TEMP 98.6; O2SAT 99
== END 2025-04-02 19:15 | disposition home or self-care (01) ==
LOC: ER 17:00
DX: F10.239 Alcohol dependence with withdrawal, unspecified (principal); F11.10 Opioid abuse, uncomplicated; F15.10 Other stimulant abuse, uncomplicated; F20.9 Schizophrenia, unspecified; F41.9 Anxiety disorder, unspecified; F31.9 Bipolar disorder, unspecified; J45.909 Unspecified asthma, uncomplicated; Z90.710 Acquired absence of both cervix and uterus; Y90.9 Presence of alcohol in blood, level not specified
CPT/HCPCS: 99283